=== PATIENT | female | born 1945 | race Two or more races ===

== ENCOUNTER 2017-04-28 09:32 | Outpatient (CLI) | payer OTHER ==
[~2017-04-28 09:32] MED LIST: BIOTIN1 MG PO; CADUET PO; CALTRATE 600 W-1 TAB PO; PRILOSEC OTC20 MG PO; ULTRACET PO
== END 2017-04-28 09:37 | disposition home or self-care (01) ==
LOC: LAB 09:32
DX: C20 Malignant neoplasm of rectum (principal); C18.7 Malignant neoplasm of sigmoid colon

== ENCOUNTER 2017-05-15 06:20 | Day surgery (SDC) | payer OTHER | END 2017-05-15 11:32 | disposition home or self-care (01) | LOC: AMB-ENDOS 06:20 | DX: I10 Essential (primary) hypertension (principal); C18.9 Malignant neoplasm of colon, unspecified; Z87.891 Personal history of nicotine dependence; J44.9 Chronic obstructive pulmonary disease, unspecified ==

== ENCOUNTER → 2017-06-25 09:42 | Outpatient (CLI) | payer OTHER | END | disposition home or self-care (01) | LOC: LAB 09:42 | DX: C20 Malignant neoplasm of rectum (principal); C18.7 Malignant neoplasm of sigmoid colon ==

== ENCOUNTER 2017-06-25 10:37 | Outpatient (CLI) | payer OTHER | END 2017-06-25 10:48 | disposition home or self-care (01) | LOC: MAMO-SONO 10:37 | DX: Z12.31 Encounter for screening mammogram for malignant neoplasm of breast (principal); Z87.898 Personal history of other specified conditions; N60.11 Diffuse cystic mastopathy of right breast; N60.12 Diffuse cystic mastopathy of left breast ==

== ENCOUNTER → 2017-10-28 08:42 | Outpatient (CLI) | payer OTHER | END | disposition home or self-care (01) | LOC: LAB 08:42 | DX: C20 Malignant neoplasm of rectum (principal); C18.7 Malignant neoplasm of sigmoid colon; R97.0 Elevated carcinoembryonic antigen [CEA] ==

== ENCOUNTER 2018-01-13 12:25 | Outpatient (CLI) | payer OTHER | END 2018-01-13 12:28 | disposition home or self-care (01) | LOC: RAD 12:25 | DX: M19.072 Primary osteoarthritis, left ankle and foot (principal) ==

== ENCOUNTER 2018-01-19 08:54 | Outpatient (CLI) | payer OTHER | END 2018-01-19 15:07 | disposition home or self-care (01) | LOC: LAB 08:54 | DX: C20 Malignant neoplasm of rectum (principal); C18.7 Malignant neoplasm of sigmoid colon; C77.2 Secondary and unspecified malignant neoplasm of intra-abdominal lymph nodes; R97.0 Elevated carcinoembryonic antigen [CEA]; E78.00 Pure hypercholesterolemia, unspecified ==

== ENCOUNTER 2018-01-20 09:24 | Outpatient (CLI) | payer OTHER | END 2018-01-20 09:39 | disposition home or self-care (01) | LOC: TOM 09:24 | DX: C20 Malignant neoplasm of rectum (principal); C18.7 Malignant neoplasm of sigmoid colon; C77.2 Secondary and unspecified malignant neoplasm of intra-abdominal lymph nodes | CPT/HCPCS: 71270; 74178; Q9965 ==

== ENCOUNTER 2018-04-17 10:24 | Outpatient (CLI) | payer OTHER | END 2018-04-17 13:06 | disposition home or self-care (01) | LOC: LAB 10:24 | DX: D64.89 Other specified anemias (principal); E11.9 Type 2 diabetes mellitus without complications; E78.49 Other hyperlipidemia; E03.8 Other specified hypothyroidism; N39.0 Urinary tract infection, site not specified; Z12.11 Encounter for screening for malignant neoplasm of colon; C20 Malignant neoplasm of rectum; C18.7 Malignant neoplasm of sigmoid colon ==

== ENCOUNTER 2018-04-17 11:57 | Outpatient (CLI) | payer OTHER | END 2018-04-17 16:33 | disposition home or self-care (01) | LOC: MRI 11:57 | DX: M79.671 Pain in right foot (principal); M77.31 Calcaneal spur, right foot; M19.90 Unspecified osteoarthritis, unspecified site | CPT/HCPCS: 73718 ==

== ENCOUNTER 2018-06-19 14:14 | Outpatient (CLI) | payer OTHER | END 2018-06-19 15:00 | disposition home or self-care (01) | LOC: LAB 14:14 | DX: K43.9 Ventral hernia without obstruction or gangrene (principal); K21.0 Gastro-esophageal reflux disease with esophagitis; Z08 Encounter for follow-up examination after completed treatment for malignant neoplasm; R97.8 Other abnormal tumor markers; D68.8 Other specified coagulation defects ==

== ENCOUNTER → 2018-06-25 | Day surgery (SDC) | payer OTHER | END | disposition home or self-care (01) | LOC: ADM 06-19 14:30 → AMB-ENDOS 07:00 → CIR.AMB 14:30 → AMB-ENDOS 14:30 | DX: D12.4 Benign neoplasm of descending colon (principal); Z85.038 Personal history of other malignant neoplasm of large intestine; Z08 Encounter for follow-up examination after completed treatment for malignant neoplasm ==

== ENCOUNTER → 2018-07-24 09:42 | Outpatient (CLI) | payer OTHER | END | disposition home or self-care (01) | LOC: LAB 09:42 | DX: C20 Malignant neoplasm of rectum (principal); C18.7 Malignant neoplasm of sigmoid colon; R97.0 Elevated carcinoembryonic antigen [CEA]; C77.2 Secondary and unspecified malignant neoplasm of intra-abdominal lymph nodes ==

== ENCOUNTER 2018-07-29 07:46 | Outpatient (CLI) | payer OTHER | END 2018-07-29 07:53 | disposition home or self-care (01) | LOC: TOM 07:46 | DX: C20 Malignant neoplasm of rectum (principal); C18.7 Malignant neoplasm of sigmoid colon; C77.2 Secondary and unspecified malignant neoplasm of intra-abdominal lymph nodes | CPT/HCPCS: 71260; 74177; Q9965 ==

== ENCOUNTER 2018-09-02 11:28 | Outpatient (CLI) | payer OTHER | END 2018-09-02 11:34 | disposition home or self-care (01) | LOC: LAB 11:28 | DX: E11.39 Type 2 diabetes mellitus with other diabetic ophthalmic complication (principal); I15.8 Other secondary hypertension; D68.32 Hemorrhagic disorder due to extrinsic circulating anticoagulants; D69.8 Other specified hemorrhagic conditions; I10 Essential (primary) hypertension ==

== ENCOUNTER 2018-10-14 09:29 | Outpatient (CLI) | payer OTHER | END 2018-10-14 15:45 | disposition home or self-care (01) | LOC: LAB 09:29 | DX: E11.39 Type 2 diabetes mellitus with other diabetic ophthalmic complication (principal); I15.8 Other secondary hypertension; D68.32 Hemorrhagic disorder due to extrinsic circulating anticoagulants; D69.8 Other specified hemorrhagic conditions ==

== ENCOUNTER 2018-11-02 08:39 | Outpatient (CLI) | payer OTHER | END 2018-11-02 09:05 | disposition home or self-care (01) | LOC: LAB 08:39 | DX: Z13.89 Encounter for screening for other disorder (principal); R97.0 Elevated carcinoembryonic antigen [CEA]; D51.8 Other vitamin B12 deficiency anemias; R82.79 Other abnormal findings on microbiological examination of urine ==

== ENCOUNTER → 2018-12-24 12:36 | Outpatient (CLI) | payer OTHER | END | disposition home or self-care (01) | LOC: LAB 12:36 | DX: L50.8 Other urticaria (principal) ==

== ENCOUNTER 2019-01-26 09:24 | Outpatient (CLI) | payer OTHER | END 2019-01-26 09:40 | disposition home or self-care (01) | LOC: LAB 09:24 | DX: R97.0 Elevated carcinoembryonic antigen [CEA] (principal); C20 Malignant neoplasm of rectum; C18.7 Malignant neoplasm of sigmoid colon ==

== ENCOUNTER 2019-07-08 06:00 | Day surgery (SDC) | payer OTHER | END 2019-07-08 10:50 | disposition home or self-care (01) | LOC: AMB-ENDOS 06:00 | PROVIDERS: ATTEND Surgery | DX: K62.89 Other specified diseases of anus and rectum (principal) ==

== ENCOUNTER 2019-08-11 08:50 | Outpatient (CLI) | payer OTHER | END 2019-08-11 15:00 | disposition home or self-care (01) | LOC: LAB 08:50 | PROVIDERS: ATTEND Internal Medicine Hematology & Oncology | DX: C20 Malignant neoplasm of rectum (principal); C18.7 Malignant neoplasm of sigmoid colon; R97.0 Elevated carcinoembryonic antigen [CEA] ==

== ENCOUNTER → 2019-09-24 11:52 | Outpatient (CLI) | payer OTHER | END | disposition home or self-care (01) | LOC: LAB 11:52 | PROVIDERS: ATTEND Internal Medicine | DX: K90.41 Non-celiac gluten sensitivity (principal); R76.8 Other specified abnormal immunological findings in serum; Z13.811 Encounter for screening for lower gastrointestinal disorder ==

== ENCOUNTER 2020-02-29 11:13 | Outpatient (CLI) | payer OTHER | END 2020-02-29 11:19 | disposition home or self-care (01) | LOC: LAB 11:13 | PROVIDERS: ATTEND Internal Medicine Hematology & Oncology | DX: R97.0 Elevated carcinoembryonic antigen [CEA] (principal); C18.7 Malignant neoplasm of sigmoid colon; C20 Malignant neoplasm of rectum ==

== ENCOUNTER 2020-08-17 06:30 | Day surgery (SDC) | payer OTHER | END 2020-08-17 13:00 | disposition home or self-care (01) | LOC: AMB-ENDOS 06:30 | PROVIDERS: ATTEND Surgery | DX: K62.89 Other specified diseases of anus and rectum (principal); Z20.822 Contact with and (suspected) exposure to COVID-19 ==

== ENCOUNTER 2021-01-11 12:00 | Outpatient (CLI) | payer OTHER | END 2021-01-11 12:12 | disposition home or self-care (01) | LOC: MAMO-SONO 12:00 | PROVIDERS: ATTEND Internal Medicine | DX: N60.11 Diffuse cystic mastopathy of right breast (principal); N60.12 Diffuse cystic mastopathy of left breast; Z12.31 Encounter for screening mammogram for malignant neoplasm of breast ==

== ENCOUNTER 2021-01-11 12:19 | Outpatient (CLI) | payer OTHER | END 2021-01-11 12:31 | disposition home or self-care (01) | LOC: NUCLEAR 12:19 | PROVIDERS: ATTEND Internal Medicine | DX: M81.0 Age-related osteoporosis without current pathological fracture (principal) ==

== ENCOUNTER 2021-01-16 09:04 | Outpatient (CLI) | payer OTHER | END 2021-01-16 09:05 | disposition home or self-care (01) | LOC: LAB 09:04 | PROVIDERS: ATTEND Internal Medicine | DX: E03.8 Other specified hypothyroidism (principal); D64.89 Other specified anemias; E78.2 Mixed hyperlipidemia; E55.9 Vitamin D deficiency, unspecified ==

== ENCOUNTER → 2021-04-10 09:12 | Outpatient (CLI) | payer OTHER | END | disposition home or self-care (01) | LOC: LAB 09:12 | PROVIDERS: ATTEND Internal Medicine Hematology & Oncology | DX: C20 Malignant neoplasm of rectum (principal); C18.7 Malignant neoplasm of sigmoid colon; R27.0 Ataxia, unspecified ==

== ENCOUNTER 2022-07-09 07:55 | Outpatient (CLI) | payer OTHER | END 2022-07-09 07:56 | disposition home or self-care (01) | LOC: NUCLEAR 07:55 | PROVIDERS: ATTEND Internal Medicine | DX: I65.23 Occlusion and stenosis of bilateral carotid arteries (principal) ==

== ENCOUNTER 2022-07-09 09:03 | Outpatient (CLI) | payer OTHER | END 2022-07-09 09:11 | disposition home or self-care (01) | LOC: SONOGRAMA 09:03 | PROVIDERS: ATTEND Internal Medicine | DX: E04.8 Other specified nontoxic goiter (principal) ==

== ENCOUNTER 2022-10-25 07:25 | Outpatient (CLI) | payer OTHER | END 2022-10-25 07:30 | disposition home or self-care (01) | LOC: NUCLEAR 07:25 | PROVIDERS: ATTEND Internal Medicine | DX: I25.118 Atherosclerotic heart disease of native coronary artery with other forms of angina pectoris (principal); I11.9 Hypertensive heart disease without heart failure; R00.2 Palpitations | CPT/HCPCS: 78452; 93017; A9500 ==

== ENCOUNTER 2024-05-03 10:21 | Outpatient (CLI) | payer OTHER | END 2024-05-03 10:26 | disposition home or self-care (01) | LOC: TOM 10:21 | PROVIDERS: ATTEND Internal Medicine | DX: R10.84 Generalized abdominal pain (principal) | CPT/HCPCS: 74177; Q9965 ==